=== PATIENT | female | born 1995 | race Caucasian/White ===

== ENCOUNTER 2018-04-11 09:51 | Emergency (ER) | payer BC ==
[2018-04-11 10:01] VITALS: BP 120/72
[2018-04-11] MEDS ORDERED: Ketorolac INJ* 30 MG/ML 1 ML VIAL IM ONE (11:40)
--- NOTE | 2018-04-11 11:47 | UC ---
Complaint Female HPI - HPI Summary HPI Summary: 23-year-old female presents with complaints of severe menstrual cramping and prolonged bleeding. States she started a new oral control last month. States she missed a dose last week and menses started on 04/03/2018 and has been persistent since that time. States menses typically lasts 5 days. Bleeding has been moderate needs to change her pad every couple of hours. She is not presently sexually active. She has a history of irregular menses with severe cramping and has been on oral control in the past. She has been worked up for this before and states she's had some inconsistent abnormal T3 findings never been diagnosed with thyroid disease she denies personal or family history of bleeding disorders. - History Of Current Complaint Chief Complaint: UCGeneralIllness Stated Complaint: CRAMPS Time Seen by Provider: 04/11/18 11:03 Hx Obtained From: Patient Hx Last Menstrual Period: Currently ?: No Onset/Duration: Lasting Days Timing: Intermittent Severity Currently: Severe Pain Intensity: 10 Character: Cramping Aggravating Factor(s): Nothing Alleviating Factor(s): Other - Ibuprofen Associated Signs And Symptoms: Negative: Fever, Back Pain, Nausea, Vomiting(# Of Episodes =) - Allergies/Home Medications Allergies/Adverse Reactions: Allergies Allergy/AdvReac Type Severity Reaction Status Date / Time amoxicillin Allergy Rash Verified 04/11/18 10:01 Home Medications: Home Medications Ibuprofen TAB* [Advil TAB*] 3 tab PO Q6HR PRN 04/11/18 [History Confirmed ] Norethindrone-E.estradiol-Iron [Vi Fe 1-20 Tablet] 1 tab PO DAILY 04/11/18 [ History Confirmed 04/11/18] PMH/Surg Hx/FS Hx/Imm Hx - Additional Past Medical History Additional PMH: Noncontributory Previously Healthy: Yes - Surgical History Surgical History: None - Family History Family History: Noncontributory - Social History Occupation: Student Lives: Dormitory/Roommates Alcohol Use: None Substance Use Type: None Smoking Status (MU): Never Smoked Tobacco Review of Systems Constitutional: Negative Respiratory: Negative Cardiovascular: Negative Gastrointestinal: Abdominal Pain - Cramping Genitourinary: Abnormal Bleeding Is Patient Immunocompromised?: No All Other Systems Reviewed And Are Negative: Yes Physical Exam Triage Information Reviewed: Yes Appearance: Well-Appearing, No Pain Distress, Well-Nourished Vital Signs: Initial Vital Signs Temp 97.9 F 04/11/18 09:56 Pulse 68 04/11/18 09:56 Resp 18 04/11/18 09:56 BP 120/72 04/11/18 09:56 Pulse Ox 100 04/11/18 09:56 Vital Signs Reviewed: Yes Respiratory: Positive: Lungs clear, Normal breath sounds, No respiratory distress Cardiovascular: Positive: RRR, No Murmur, Pulses Normal, Brisk Capillary Refill Abdomen Description: Positive: Nontender, No Organomegaly, Soft. Negative: CVA Tenderness (R), CVA Tenderness (L), Distended, Guarding Neurological: Positive: Alert Skin Exam: Normal Complaint Female Dx - Course Course Of Treatment: 23 year old female with severe mentrual cramping and bleeding for 8 days. She started taking an oral control pill last month, missed a dose prior to the onset of her present menses. She started a new pack as normal but then stopped again after a couple of days because of the severe cramping. She has past history of menorrhagia and was previous managed on this same control pill. Her urinie was negative. 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 Warning symptoms were reviewed. Verbalized understanding and agrees with POC. - Differential Dx/Diagnosis Provider Diagnoses: Menorrhagia Discharge - Sign-Out/Discharge Documenting (check all that apply): Patient Departure All imaging exams completed and their final reports reviewed: No Studies - Discharge Plan Condition: Stable Disposition: HOME Patient Education Materials: Menorrhagia (ED) Referrals: No Primary Care Phys,NOPCP [Primary Care Provider] - [facility] PHYSICIAN REFERRAL [Outside] Additional Instructions: You were given a shot of an anti-inflammatory in the clinic today called ketoralac (Toradol) to help with your pain. Do not take any other anti- inflammatories such as ibuprofen (Advil, Motrin), naproxen (Aleve), or aspirin for at least 8 hours after receiving this injection. You may take over-the- counter acetaminophen (Tylenol) according to directions safely for additional pain relief. After you have waited 8 hours from the time of receiving the ketorolac you may continue to use ibuprofen 600 mg every 8 hours as needed for pain. Make sure you take your oral control exactly as directed to prevent abnormal hormone shifts that may contribute to her symptoms. I have given you the phone number for the [facility] physician referral line. I would recommend calling them to get assistance with setting up [facility] care here locally for further evaluation. Seek immediate medical attention in the emergency room if you haven't worsening pain, heavy bleeding requiring you to change her pad more than 3 times in an hour, you become weak or dizzy, feeling like her heart is racing, or any worsening of symptoms. - Billing Disposition and Condition Condition: STABLE Disposition: Home - Attestation Statements Provider Attestation: Per institutional requirements, I have reviewed the chart, however, I was not consulted specifically or made aware of this patient by the midlevel provider. I did not personally evaluate, interact with , or disposition this patient
== END 2018-04-11 12:00 | disposition home or self-care (01) ==
LOC: UCEAST 09:51
DX: N92.0 Excessive and frequent menstruation with regular cycle (principal); N94.6 Dysmenorrhea, unspecified; Z88.0 Allergy status to penicillin
CPT/HCPCS: 84702; 96372; 99211; G0463; J1885